=== PATIENT | female | born 2000 | race Caucasian/White ===

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

== ENCOUNTER 2020-11-04 16:01 | Observation (INO) | payer OTHER ==
[~2020-11-04] VITALS: Ht 144.8 cm; Wt 61.7 kg
[2020-11-04] MEDS ORDERED: TERBUTALINE 1 MG/ML VIAL SUBQ SCH (17:05)
== END 2020-11-04 19:30 | disposition home or self-care (01) ==
LOC: MLD 16:01
PROVIDERS: ADMIT Obstetrics & Gynecology; ATTEND Obstetrics & Gynecology
DX: O26.893 Other specified pregnancy related conditions, third trimester (principal); R10.9 Unspecified abdominal pain; O99.891 Other specified diseases and conditions complicating pregnancy; M54.9 Dorsalgia, unspecified; Z3A.32 32 weeks gestation of pregnancy
CPT/HCPCS: 76805; 81000; G0378; J3105; 96372

== ENCOUNTER 2020-11-13 21:50 | Observation (INO) | payer OTHER ==
[~2020-11-13 21:50] MED LIST changes: -FERR325E14 PO
== END 2020-11-13 22:50 | disposition home or self-care (01) ==
LOC: MLD 21:50
PROVIDERS: ADMIT Obstetrics & Gynecology; ATTEND Obstetrics & Gynecology
DX: O47.03 False labor before 37 completed weeks of gestation, third trimester (principal); Z3A.36 36 weeks gestation of pregnancy
CPT/HCPCS: 59025; G0378

== ENCOUNTER 2020-12-07 15:52 | Observation (INO) | payer OTHER, SELFPAY ==
[~2020-12-07] VITALS: Ht 147.3 cm; Wt 64.4 kg
[2020-12-07 19:29] VITALS: BP 109/65
== END 2020-12-07 18:32 | disposition home or self-care (01) ==
LOC: MLD 15:52
PROVIDERS: ADMIT Obstetrics & Gynecology; ATTEND Obstetrics & Gynecology
DX: O47.1 False labor at or after 37 completed weeks of gestation (principal); Z3A.38 38 weeks gestation of pregnancy
CPT/HCPCS: 59025; 76815; 81000; G0378

== ENCOUNTER 2020-12-13 10:20 | Inpatient (IN) | payer OTHER, SELFPAY ==
[~2020-12-13] VITALS: Ht 147.3 cm; Wt 65.8 kg
[2020-12-13] MEDS ORDERED: OXYTOCIN 10 UNITS/ML VIAL IM ONE (11:30)
[2020-12-13] MEDS ORDERED: ONDANSETRON 4 MG/2 ML VIAL IVP PRN (11:30)
[2020-12-13] MEDS ORDERED: OXYTOCIN 20 UNITS in LACTATED RINGERS 1,000 ML IV SCH (11:30)
[2020-12-13] MEDS ORDERED: MISOPROSTOL 25 MCG TAB VG SCH (12:00)
[2020-12-13 12:09] LABS: BASOPHILS % (AUTO) 0.2 % (0.0-2.0); EOSINOPHILS % (AUTO) 0.5 % (0.0-4.0); HEMATOCRIT 30.6 % (36-48); HEMOGLOBIN 10.5 g/dL (12.0-16.0); LYMPHOCYTES # (AUTO) 1.9 K/uL (2.5-16.5); LYMPHOCYTES % (AUTO) 21.4 % (20.5-51.1); MEAN CORPUSCULAR HEMOGLOBIN 28 pg (27-31); MEAN CORPUSCULAR HGB CONC 34 g/dL (33-37); MEAN CORPUSCULAR VOLUME 82.9 fL (80-94); MONOCYTES # (AUTO) 0.7 K/uL (0.8-1.0); MONOCYTES % (AUTO) 8.4 % (1.7-9.3); NEUTROPHILS # (AUTO) 6.1 K/uL (1.8-7.7); NEUTROPHILS % (AUTO) 69.5 % (42.2-75.2); PLATELET COUNT (AUTO) 199 K/uL (140-450); RED BLOOD CELL COUNT(AUTO) 3.69 MIL/uL (4.20-5.40); RED CELL DISTRIBUTION WIDTH 16.2 % (11.6-13.7); WHITE BLOOD COUNT (AUTO) 8.8 K/uL (4.5-11.0)
[2020-12-13 12:23] LABS: APPEARANCE,URINE CLEAR (CLEAR); BILIRUBIN,URINE NEGATIVE (NEGATIVE); BLOOD, URINE NEGATIVE (NEGATIVE); COLOR,URINE YELLOW (YELLOW); LEUKOCYTE ESTERASE ,URINE TRACE (NEGATIVE); NITRITE, URINE NEGATIVE (NEGATIVE); UGLUCOSE TRACE (NEGATIVE)
[2020-12-13 12:29] LABS: RBC,URINE NONE SEEN /HPF (0-5)
[2020-12-13 12:30] LABS: WBC,URINE 0-5 /HPF (0-5)
[2020-12-13 12:32] LABS: ALBUMIN 2.6 g/dL (3.4-5.0); ANION GAP 13.4 (8-16); CARBON DIOXIDE 24.1 mmol/L (21-32); CREATININE 0.4 mg/dL (0.6-1.3); POTASSIUM 3.5 mmol/L (3.5-5.1); TOTAL BILIRUBIN 0.5 mg/dL (0.0-1.0)
[2020-12-13 13:30] VITALS: BP 108/57
[2020-12-13] MEDS: LACTATED RINGERS 1,000 ML IV SCH (14:34)
[2020-12-13] MEDS ORDERED: NALBUPHINE 10 MG/ML AMP IVP PRN (21:45)
[2020-12-13] MEDS ORDERED: PROMETHAZINE 25 MG/ML VIAL IVP PRN (21:45)
[2020-12-14] MEDS ORDERED: OXYTOCIN 20 UNITS/LR PREMIX 1,000 ML IV ONE (01:49)
[2020-12-14] MEDS: LACTATED RINGERS 1,000 ML IV SCH ×2 (03:43→07:34)
[2020-12-14] MEDS ORDERED: ROPIVACAINE 0.2%/NS PREMIX 200 ML EPI ONE (04:58)
[2020-12-14] MEDS ORDERED: ROPIVACAINE 0.2%/NS PREMIX 100 ML EPI SCH (05:20)
[2020-12-14] MEDS ORDERED: OXYTOCIN 10 UNITS/ML VIAL ONE (08:46)
[2020-12-14] MEDS ORDERED: MEASLES, MUMPS, AND RUBELLA 1 VIAL SQVAC ONE (13:50)
[2020-12-14] MEDS ORDERED: OXYTOCIN 20 UNITS in LACTATED RINGERS 1,000 ML IV SCH (13:50)
[2020-12-14] MEDS ORDERED: bisacodyL 5 MG TABEC PO PRN (13:50)
[2020-12-14] MEDS: ACETAMINOPHEN 325 MG TAB PO PRN (15:22)
[2020-12-14] MEDS: DOCUSATE SODIUM 100 MG GELCAP PO PRN (20:50)
[2020-12-14] MEDS: IBUPROFEN 600 MG TAB PO PRN (21:22)
[2020-12-15 08:18] LABS: BASOPHILS % (AUTO) 0.2 % (0.0-2.0); EOSINOPHILS # (AUTO) 0.1 K/uL (0-0.4); EOSINOPHILS % (AUTO) 0.6 % (0.0-4.0); HEMATOCRIT 32.2 % (36-48); LYMPHOCYTES % (AUTO) 19.7 % (20.5-51.1); MEAN CORPUSCULAR HEMOGLOBIN 29 pg (27-31); MEAN CORPUSCULAR HGB CONC 34 g/dL (33-37); MEAN CORPUSCULAR VOLUME 83.8 fL (80-94); MONOCYTES # (AUTO) 0.6 K/uL (0.8-1.0); MONOCYTES % (AUTO) 5.8 % (1.7-9.3); NEUTROPHILS # (AUTO) 7.7 K/uL (1.8-7.7); NEUTROPHILS % (AUTO) 73.7 % (42.2-75.2); PLATELET COUNT (AUTO) 190 K/uL (140-450); RED BLOOD CELL COUNT(AUTO) 3.84 MIL/uL (4.20-5.40); RED CELL DISTRIBUTION WIDTH 16.1 % (11.6-13.7); WHITE BLOOD COUNT (AUTO) 10.4 K/uL (4.5-11.0)
--- NOTE | 2020-12-15 08:59 | NUR ---
PATIENT HAS BEEN SCREENED AND CATEGORIZED LOW NUTRITION RISK. PATIENT WILL BE SEEN WITHIN 7 DAYS OF ADMISSION. 12/19/[address]
[2020-12-15] MEDS: IBUPROFEN 600 MG TAB PO PRN (15:59)
[2020-12-16] MEDS: ACETAMINOPHEN 325 MG TAB PO PRN (06:03)
[2020-12-16] MEDS: IBUPROFEN 600 MG TAB PO PRN (10:49)
[2020-12-16] MEDS: DOCUSATE SODIUM 100 MG GELCAP PO PRN (10:50)
== END 2020-12-16 16:50 | disposition home or self-care (01) | DRG 560 ==
LOC: MLD 10:20 → MFCC 12-14 17:05
PROVIDERS: ADMIT Obstetrics & Gynecology; ATTEND Obstetrics & Gynecology
PROC: 10E0XZZ Delivery of Products of Conception, External Approach (ICD-10-PCS; principal; 2020-12-14)
PROC: 10907ZC Drainage of Amniotic Fluid, Therapeutic from Products of Conception, Via Natural or Artificial Opening (ICD-10-PCS; 2020-12-14)
PROC: 3E0R3BZ Introduction of Anesthetic Agent into Spinal Canal, Percutaneous Approach (ICD-10-PCS; 2020-12-14)
PROC: 00HU33Z Insertion of Infusion Device into Spinal Canal, Percutaneous Approach (ICD-10-PCS; 2020-12-14)
PROC: 3E0234Z Introduction of Serum, Toxoid and Vaccine into Muscle, Percutaneous Approach (ICD-10-PCS; 2020-12-14)
PROC: 3E0134Z Introduction of Serum, Toxoid and Vaccine into Subcutaneous Tissue, Percutaneous Approach (ICD-10-PCS; 2020-12-14)
DX: O69.1XX0 Labor and delivery complicated by cord around neck, with compression, not applicable or unspecified (principal); Z20.822 Contact with and (suspected) exposure to COVID-19; Z37.0 Single live birth; Z3A.39 39 weeks gestation of pregnancy; Z23 Encounter for immunization
CPT/HCPCS: 36415; 51702; 59409; 76815; 80053; 81001; 85025; 86592; 86886; 86900; 86901; 87086; J2590; J2795; J7120

== ENCOUNTER 2021-09-18 10:27 | Observation (INO) | payer OTHER, SELFPAY ==
[~2021-09-18] VITALS: Ht 147.3 cm; Wt 60.8 kg
[2021-09-18 11:20] VITALS: BP 112/55
== END 2021-09-18 14:10 | disposition home or self-care (01) ==
LOC: MLD 10:27
PROVIDERS: ADMIT Obstetrics & Gynecology; ATTEND Obstetrics & Gynecology
DX: O99.891 Other specified diseases and conditions complicating pregnancy (principal); M54.9 Dorsalgia, unspecified; Z3A.25 25 weeks gestation of pregnancy
CPT/HCPCS: 59025; 76770; 76805; 81000; G0378; G0379; Q0092

== ENCOUNTER 2022-12-15 21:58 | Inpatient (IN) | payer OTHER ==
[~2022-12-15] VITALS: Ht 144.8 cm; Wt 62.6 kg
[2022-12-15 22:25] VITALS: BP 116/60
[2022-12-16] MEDS ORDERED: METHYLERGONOVINE 0.2 MG/ML AMP IM PRN (04:25)
[2022-12-16] MEDS ORDERED: MORPHINE SULFATE 4 MG/ML SYR IVP PRN (04:25)
[2022-12-16] MEDS ORDERED: ONDANSETRON 4 MG/2 ML VIAL IVP PRN (04:25)
[2022-12-16] MEDS ORDERED: CARBOPROST 250 MCG/ML AMP IM PRN (04:25)
[2022-12-16] MEDS: LACTATED RINGERS 1,000 ML IV SCH ×4 (04:25→23:53)
[2022-12-16 05:18] LABS: BASOPHILS # (AUTO) 0.2 K/uL (0.00-0.22); BASOPHILS % (AUTO) 1.3 % (0.0-2.0); EOSINOPHILS # (AUTO) 0.3 K/uL (0-0.4); EOSINOPHILS % (AUTO) 2.2 % (0.0-4.0); HEMATOCRIT 31.9 % (36-48); HEMOGLOBIN 10.9 g/dL (12.0-16.0); LYMPHOCYTES # (AUTO) 4.2 K/uL (2.5-16.5); LYMPHOCYTES % (AUTO) 34.4 % (20.5-51.1); MEAN CORPUSCULAR HEMOGLOBIN 30 pg (27-31); MEAN CORPUSCULAR HGB CONC 34 g/dL (33-37); MEAN CORPUSCULAR VOLUME 87.4 fL (80-94); MONOCYTES % (AUTO) 7.8 % (1.7-9.3); NEUTROPHILS # (AUTO) 6.7 K/uL (1.8-7.7); NEUTROPHILS % (AUTO) 54.3 % (42.2-75.2); PLATELET COUNT (AUTO) 234 K/uL (140-450); RED BLOOD CELL COUNT(AUTO) 3.65 MIL/uL (4.20-5.40); RED CELL DISTRIBUTION WIDTH 16.6 % (11.6-13.7); WHITE BLOOD COUNT (AUTO) 12.3 K/uL (4.8-10.8)
[2022-12-16 05:19] LABS: APPEARANCE,URINE CLOUDY (CLEAR); BILIRUBIN,URINE 1+ (NEGATIVE); BLOOD, URINE NEGATIVE (NEGATIVE); COLOR,URINE YELLOW (YELLOW); LEUKOCYTE ESTERASE ,URINE 1+ (NEGATIVE); NITRITE, URINE NEGATIVE (NEGATIVE); UGLUCOSE NEGATIVE (NEGATIVE)
[2022-12-16 05:53] LABS: ALBUMIN 2.5 g/dL (3.4-5.0); ANION GAP 13.8 (8-16); CARBON DIOXIDE 22.3 mmol/L (21-32); CREATININE 0.5 mg/dL (0.6-1.3); POTASSIUM 3.1 mmol/L (3.5-5.1); TOTAL BILIRUBIN 0.6 mg/dL (0.0-1.0)
[2022-12-16 06:00] LABS: PROTHROMBIN TIME 9.9 secs (10.8-13.4)
[2022-12-16 06:08] LABS: RBC,URINE 0-5 /HPF (0-5)
[2022-12-16] MEDS ORDERED: OXYTOCIN 20 UNITS in LACTATED RINGERS 1,000 ML IV SCH (08:10)
--- NOTE | 2022-12-16 08:33 | NUR ---
PATIENT HAS BEEN SCREENED AND CATEGORIZED LOW NUTRITION RISK. PATIENT WILL BE SEEN WITHIN 7 DAYS OF ADMISSION. 12/15/22-12/22/22 REVIEWED BY [address] J[address] RD
[2022-12-16] MEDS ORDERED: AMPICILLIN 2,000 MG in NACL 0.9% 100 ML IV SCH (08:50)
[2022-12-16] MEDS ORDERED: AMPICILLIN 2,000 MG VIAL ONE (09:03)
[2022-12-16] MEDS ORDERED: POTASSIUM CHLORIDE 10 MEQ TABER PO SCH (09:14)
[2022-12-16] MEDS ORDERED: ROPIVACAINE 0.2%/NS PREMIX 200 ML EPI ONE (09:38)
[2022-12-16] MEDS ORDERED: fentaNYL citrate 0.05 MG/ML VIAL ONE (09:38)
[2022-12-16] MEDS ORDERED: AMPICILLIN 1,000 MG VIAL ONE ×2 (13:26→18:03)
[2022-12-16] MEDS: AMPICILLIN 1,000 MG in NACL 0.9% 50 ML IV SCH ×2 (13:34→18:06)
[2022-12-17] MEDS: LACTATED RINGERS 1,000 ML IV SCH ×2 (00:43→06:36)
[2022-12-17] MEDS ORDERED: TERBUTALINE 1 MG/ML VIAL SUBQ ONE (06:31)
[2022-12-17] MEDS ORDERED: TERBUTALINE 1 MG/ML VIAL SUBQ SCH (06:35)
[2022-12-17] MEDS ORDERED: OXYTOCIN 20 UNITS/LR PREMIX 1,000 ML IV ONE (06:36)
[2022-12-17] MEDS ORDERED: MISOPROSTOL 200 MCG TAB ONE (07:20)
[2022-12-17] MEDS ORDERED: METHYLERGONOVINE 0.2 MG/ML AMP IM PRN ×2 (08:00→18:45)
[2022-12-17] MEDS ORDERED: IBUPROFEN 800 MG TAB PO PRN (08:00)
[2022-12-17] MEDS ORDERED: MEASLES, MUMPS, AND RUBELLA 1 VIAL SQVAC ONE (08:00)
[2022-12-17] MEDS ORDERED: METHYLERGONOVINE 0.2 MG TAB PO PRN (08:00)
[2022-12-17] MEDS ORDERED: BENZOCAINE/MENTHOL 20%-0.5% 60 GM CAN TP PRN (08:00)
[2022-12-17] MEDS ORDERED: bisacodyL 5 MG TABEC PO PRN (08:00)
[2022-12-17] MEDS ORDERED: OXYTOCIN 10 UNITS/ML VIAL IM PRN (08:00)
[2022-12-17] MEDS ORDERED: HYDROcodone/APAP 5/325 MG 1 TAB TAB PO PRN ×2 (08:00)
[2022-12-17] MEDS: ACETAMINOPHEN 325 MG TAB PO PRN (08:37)
[2022-12-17] MEDS: IBUPROFEN 600 MG TAB PO PRN ×3 (09:33→23:02)
[2022-12-17] MEDS: SIMETHICONE 80 MG TAB.CHEW PO PRN (14:14)
[2022-12-17] MEDS: DOCUSATE SODIUM 100 MG GELCAP PO PRN (14:15)
[2022-12-17] MEDS ORDERED: ONDANSETRON 4 MG/2 ML VIAL IVP PRN (18:45)
[2022-12-17] MEDS ORDERED: OXYTOCIN 20 UNITS in LACTATED RINGERS 1,000 ML IV SCH (18:45)
[2022-12-17] MEDS ORDERED: LACTATED RINGERS 1,000 ML IV SCH (18:45)
[2022-12-17] MEDS ORDERED: MORPHINE SULFATE 5 MG/ML VIAL IVP PRN (18:45)
[2022-12-18] MEDS: IBUPROFEN 600 MG TAB PO PRN ×2 (08:02→17:43)
[2022-12-18 08:33] LABS: HEMATOCRIT 31.2 % (36-48); HEMOGLOBIN 10.4 g/dL (12.0-16.0)
[2022-12-18] MEDS: SIMETHICONE 80 MG TAB.CHEW PO PRN ×2 (10:25→22:16)
[2022-12-18] MEDS: DOCUSATE SODIUM 100 MG GELCAP PO PRN ×2 (10:26→22:17)
[2022-12-18] MEDS: ACETAMINOPHEN 325 MG TAB PO PRN (22:17)
[2022-12-19] MEDS: SIMETHICONE 80 MG TAB.CHEW PO PRN (08:10)
[2022-12-19] MEDS: IBUPROFEN 600 MG TAB PO PRN (08:10)
[2022-12-19] MEDS: DOCUSATE SODIUM 100 MG GELCAP PO PRN (08:11)
== END 2022-12-19 12:38 | disposition home or self-care (01) | DRG 560 ==
LOC: MLD 21:58 → OBSVTOIN 12-16 04:35 → MFCC 12-17 09:51
PROVIDERS: ADMIT Obstetrics & Gynecology; ATTEND Obstetrics & Gynecology
PROC: 10E0XZZ Delivery of Products of Conception, External Approach (ICD-10-PCS; principal; 2022-12-17)
PROC: 3E0R3BZ Introduction of Anesthetic Agent into Spinal Canal, Percutaneous Approach (ICD-10-PCS; 2022-12-17)
PROC: 00HU33Z Insertion of Infusion Device into Spinal Canal, Percutaneous Approach (ICD-10-PCS; 2022-12-17)
DX: O69.81X0 Labor and delivery complicated by cord around neck, without compression, not applicable or unspecified (principal); Z37.0 Single live birth; Z20.822 Contact with and (suspected) exposure to COVID-19; Z3A.37 37 weeks gestation of pregnancy
CPT/HCPCS: G0378 ×3; 36415; 51702; 59409; 80053; 81001; 85018; 85025; 85610; 85730; 86592; 86886; 86900; 86901; 87086; 87653-90; 90715; J0290; J2210; J2590; J2795; J3010; J3105; J7120